=== PATIENT | female | born 1945 | race Caucasian/White ===

== ENCOUNTER 2023-05-04 11:19 | Emergency (ER) | payer MEDICARE ==
[2023-05-04 12:19] LABS: Absolute Lymphocytes (CBC) 1.2 K/uL (0.7-4.9); Hematocrit 40.8 % (36.0-45.0); Lymphocytes % 28.7 % (15.3-44.8); MCV 90.2 fL (80-100); MPV 8.7 fL (7.6-11.3); Platelets 163 thou/uL (152-406); Protime INR 1.07; RBC Red Blood Cell Count 4.52 M/uL (3.86-4.86)
[2023-05-04 12:35] LABS: Magnesium 1.9 mg/dL (1.6-2.4); Potassium 3.2 mEq/L (3.5-5.1); Troponin High Sensitivity 30.9 pg/mL (<58.9)
--- NOTE | 2023-05-04 12:44 | RAD REPORT ---
EXAM DESCRIPTION: RAD - Chest Pa And Lat (2 Views) - 05/04/2023 12:31 pm CLINICAL HISTORY: Cough;SOB Chest pain. COMPARISON: Chest Pa And Lat (2 Views) dated 01/28/2021; Chest Single View dated 11/16/2017; CHEST PA AND LAT 2 VIEW dated 01/03/2015; CHEST PA AND LAT 2 VIEW dated 08/18/2013 TECHNIQUE: PA and lateral views of the chest were obtained. FINDINGS: The lungs are hyperexpanded compatible with COPD. Slight haziness in the right lung base l aterally may represent early infiltrate. The heart is upper limit of normal in size. Sternotomy wires . IMPRESSION: COPD is noted. Hazy basilar opacity particularly on the right could indicate early pneum onia. The USPSTF recommends annual screening for lung cancer with low-dose CT (LDCT) in adults aged 50 to 8 0 years who have a 20 pack-year smoking history and currently smoke or have quit within the past 15 y ears.
--- NOTE | 2023-05-04 15:29 | RAD REPORT ---
EXAM DESCRIPTION: CT - Chest For Pe Angio - 05/04/2023 3:04 pm CLINICAL HISTORY: Chest pain. SOB COMPARISON: <Comparisons> TECHNIQUE: CT angiogram of the pulmonary arteries was performed with MIP. All CT scans are performed using dose optimization technique as appropriate and may include automated exposure control or mA/KV adjustment according to patient size. FINDINGS: No evidence of pulmonary thromboembolism. No acute aortic finding demonstrated. Aortic atherosclerosis. Mild COPD. 19 x 16 mm noncalcified nodule in the left lung base. 12 x 8 mm noncalcified nodule in the right middle lobe. No significant pericardial or pleural fluid. Small hiatal hernia. Sternotomy wires. IMPRESSION: No evidence of pulmonary thromboembolism. Noncalcified bilateral pulmonary nodules as detailed. These could be neoplastic or metastatic. Recomm end follow-up PET-CT to evaluate for metabolic activity.
[2023-05-04] MEDS ORDERED: POTASSIUM 25 MEQ EFFERV TAB ONE (16:41)
--- NOTE | 2023-05-04 16:46 | ER ---
Nurse's Notes [facility] Name: Melly Monte Age: 77 yrs Sex: Female : 1945 Arrival Date: 05/04/2023 Time: 11:19 Bed 12 Private MD: Diagnosis: Pneumonia due to SARS-associated coronavirus Presentation: 05/04 11:25 Chief complaint: Patient states: "The last 3 days, I couldn't get out of bed and just mb9 feel awful. I ordered a COVID test and it came back positive today. I have N/V/D and feel SOB when walking.". Coronavirus screen: Vaccine status: Patient reports receiving the 2nd dose of the covid vaccine. Ebola Screen: No symptoms or risks identified at this time. Initial Sepsis Screen: Does the patient meet any 2 criteria? No. Patient's initial sepsis screen is negative. Does the patient have a suspected source of infection? No. Patient's initial sepsis screen is negative. Risk Assessment: Do you want to hurt yourself or someone else? Patient reports no desire to harm self or others. Onset of symptoms was May 04, 2023. 11:25 Method Of Arrival: Ambulatory mb9 11:25 Acuity: BRIANNA 3 mb9 Triage Assessment: 11:29 General: Appears in no apparent distress. Behavior is calm, cooperative. Pain: mb9 Complains of pain in entire body. Neuro: Level of Consciousness is awake, alert, obeys commands, Oriented to person, place, time, situation, Appropriate for age. Cardiovascular: Patient's skin is warm and dry. Respiratory: Reports shortness of breath cough that is Breath sounds are clear bilaterally. Respiratory: Onset: The symptoms/episode began/occurred gradually, the patient has mild shortness of breath. GI: Reports diarrhea, nausea, vomiting. Derm: Skin is pink, warm \\T\\ dry. Historical: - Allergies: 11:27 No Known Allergies; mb9 - Home Meds: 11:27 Metformin Oral [Active]; Metoprolol Tartrate Oral [Active]; mb9 - PMHx: 11:27 Chronic obstructive lung disease; Hypertensive disorder; Diabetes mellitus; mb9 - PSHx: 11:27 Appendectomy; Cholecystectomy; Triple bypass; mb9 - Immunization history:: Adult Immunizations up to date. - Social history:: Smoking status: Patient/guardian denies using tobacco. Screenin:34 [facility] ED Fall Risk Assessment (Adult) History of falling in the last 3 months, me1 including since admission No falls in past 3 months (0 pts) Confusion or Disorientation No (0 pts) Intoxicated or Sedated No (0 pts) Impaired Gait No (0 pts) Mobility Assist Device Used No (0 pt) Altered Elimination No (0 pt) Score/Fall Risk Level 0 - 2 = Low Risk. Abuse screen: Denies threats or abuse. Nutritional screening: No deficits noted. Tuberculosis screening: No symptoms or risk factors identified. Assessment: 16:34 General: Appears uncomfortable, well groomed, well developed, well nourished, Behavior me1 is calm, cooperative, appropriate for age. General: Reports chills for fever for feeling ill for fatigue for she hasn't felt like getting oob x 3 days. Reports n/v/d and sob with exertion. States she took an at home covid test that was positive. Pain: Denies pain. Neuro: Level of Consciousness is awake, alert, obeys commands, Oriented to person, place, time, situation, Appropriate for age. Cardiovascular: Capillary refill < 3 seconds Patient's skin is warm and dry. Respiratory: Reports shortness of breath cough that is pain with cough Airway is patent Respiratory effort is even, unlabored, Respiratory pattern is regular, symmetrical. GI: Reports diarrhea, nausea, vomiting, since thursday. Vital Signs: 11:25 BP 111 / 70; Pulse 85; Resp 18; Temp 97.2; Pulse Ox 94% on R/A; Weight 68.04 kg; Height mb9 5 ft. 5 in. ; Pain 0/10; 16:43 BP 124 / 64; Pulse 67; Resp 18; Pulse Ox 99% on R/A; me1 11:25 Body Mass Index 24.96 (68.04 kg, 165.1 cm) mb9 11:25 Pain Scale: Adult mb9 ED Course: 11:23 Patient arrived in ED. mg5 11:25 Donald Sheth PA is PHCP. cp 11:25 Umair Mcdonald MD is Attending Physician. cp 11:25 Arm band placed on. mb9 11:27 Triage completed. mb9 12:25 Basic Metabolic Panel Sent. bc6 12:25 Magnesium Sent. bc6 12:25 NT PRO-BNP Sent. 6 12:25 Troponin HS Sent. bc6 12:25 Inserted saline lock: 22 gauge in right antecubital area, using aseptic technique. 6 Blood collected. 12:31 XRAY Chest Pa And Lat (2 Views) In Process Unspecified. EDMS 15:06 CT Chest For PE Angio In Process Unspecified. EDMS 16:29 Bonnie Duff, RN is Primary Nurse. me1 16:34 Patient has correct armband on for positive identification. Bed in low position. Call me1 light in reach. Side rails up X 1. Provided Education on: POC. Verbalized understanding. . 16:34 No provider procedures requiring assistance completed. IV is patent, is intact, with me1 fluids infusing freely, with good blood return. 17:01 IV discontinued, intact, bleeding controlled, No redness/swelling at site. Pressure mb9 dressing applied. Administered Medications: 16:33 Drug: Potassium PO Effervescent Tablet 50 mEq Route: PO; me1 Medication: 16:34 VIS not applicable for this client. me1 Outcome: 16:46 Discharge ordered by . kaye 17:01 Discharged to home ambulatory. mb9 17:01 Condition: stable 17:01 Discharge instructions given to patient, Instructed on discharge instructions, follow up and referral plans. Demonstrated understanding of instructions, follow-up care, medications, Prescriptions given X 4. 17:01 Patient left the ED. mb9 Signatures: Dispatcher [employer] EDNE Donald Sheth PA PA cp Breneman, Mary Beth RN RN mb9 Tory Hutchinson 6 Bonnie Duff, MOIRA RN me1 Shivani Hay mg5
--- NOTE | 2023-05-04 16:46 | EDPHYS ---
Physician Documentation [facility] Name: Melly Monte Age: 77 yrs Sex: Female : 1945 Arrival Date: 05/04/2023 Time: 11:19 Bed 12 Private MD: ED Physician Umair Mcdonald HPI: 05/04 11:45 This 77 yrs old Female presents to ER via Ambulatory with complaints of Positive covid, cp Shortness Of Breath. 11:45 The patient has shortness of breath with light activity. cp 11:45 Patient is a 77-year-old female who presents to the emergency department with cp complaints of shortness of breath, cough. Patient reports she has been feeling ill for the last 3 days and tested herself for COVID which returned positive today. Patient has not measured any fevers. Patient complains of some nausea, vomiting and diarrhea. Historical: - Allergies: 11:27 No Known Allergies; mb9 - Home Meds: 11:27 Metformin Oral [Active]; Metoprolol Tartrate Oral [Active]; mb9 - PMHx: 11:27 Chronic obstructive lung disease; Hypertensive disorder; Diabetes mellitus; mb9 - PSHx: 11:27 Appendectomy; Cholecystectomy; Triple bypass; mb9 - Immunization history:: Adult Immunizations up to date. - Social history:: Smoking status: Patient/guardian denies using tobacco. ROS: 11:50 Constitutional: Positive for body aches, Negative for fever, poor PO intake. cp 11:50 Eyes: Negative for injury, pain, redness, and discharge. cp 11:50 ENT: Negative for drainage from ear(s), ear pain, difficulty swallowing, difficulty handling secretions. 11:50 Cardiovascular: Negative for chest pain, edema, palpitations. 11:50 Respiratory: Positive for cough, shortness of breath, on exertion. 11:50 Abdomen/GI: Positive for nausea and vomiting, diarrhea, Negative for constipation, black/tarry stool, rectal bleeding. 11:50 Neuro: Positive for weakness, Negative for altered mental status, dizziness, headache, loss of consciousness, syncope. 11:50 All other systems are negative. Exam: 11:55 Constitutional: The patient appears in no acute distress, alert, awake, cp non-diaphoretic, non-toxic, well developed, well nourished. 11:55 Head/Face: Normocephalic, atraumatic. cp 11:55 Eyes: Periorbital structures: appear normal, Conjunctiva: normal, no exudate, no injection, Sclera: no appreciated abnormality, Lids and lashes: appear normal, bilaterally. 11:55 ENT: External ear(s): are unremarkable, Ear canal(s): are normal, clear, TM's: dullness, bilaterally, Nose: is normal, Mouth: Lips: moist, Oral mucosa: pink and intact, moist, Posterior pharynx: is normal, airway is patent, no erythema, no exudate. 11:55 Neck: ROM/movement: is normal, is supple, without pain, no range of motions limitations, no meningismus. 11:55 Chest/axilla: Inspection: normal. 11:55 Cardiovascular: Rate: normal, Rhythm: regular, Edema: is not appreciated, JVD: is not appreciated. 11:55 Respiratory: the patient does not display signs of respiratory distress, Respirations: labored breathing, is not present, shallow respirations, that is mild, Breath sounds: are clear throughout, no decreased breath sounds, no stridor, no wheezing. 11:55 Abdomen/GI: Inspection: abdomen appears normal, Palpation: abdomen is soft and non-tender, in all quadrants. 11:55 Back: ROM is normal. 11:55 Neuro: Orientation: to person, place \T\ time. Mentation: is normal, Motor: moves all fours, strength is normal, Sensation: is normal, Gait: is steady, at a normal pace, without difficulty. 12:28 ECG was reviewed by the Attending Physician. Vital Signs: 11:25 BP 111 / 70; Pulse 85; Resp 18; Temp 97.2; Pulse Ox 94% on R/A; Weight 68.04 kg; Height mb9 5 ft. 5 in. ; Pain 0/10; 16:43 BP 124 / 64; Pulse 67; Resp 18; Pulse Ox 99% on R/A; me1 11:25 Body Mass Index 24.96 (68.04 kg, 165.1 cm) mb9 11:25 Pain Scale: Adult mb9 MDM: 11:31 Patient medically screened. ci 16:45 Data reviewed: vital signs, nurses notes, lab test result(s), EKG, radiologic studies, cp CT scan, plain films. 16:45 Differential diagnosis: Bronchitis Myocardial Infarction pneumonia, Pneumothorax cp pulmonary edema, Pulmonary Embolism Sepsis Unstable Angina. Counseling: I had a detailed discussion with the patient and/or guardian regarding the historical points, exam findings, and any diagnostic results supporting the discharge/admit diagnosis, lab results, radiology results, the need for outpatient follow up, a family practitioner, to return to the emergency department if symptoms worsen or persist or if there are any questions or concerns that arise at home. 05/04 11:35 Order name: Basic Metabolic Panel; Complete Time: 13:58 cp 05/04 13:58 Interpretation: Normal except: NA 134; K 3.2; GLUC 111; CRE 1.06; GFR 54. cp 05/04 11:35 Order name: CBC with Diff; Complete Time: 13:58 cp 05/04 13:58 Interpretation: Normal except: WBC 4.10; MN% 17.4. cp 05/04 11:35 Order name: Magnesium; Complete Time: 13:58 cp 05/04 11:35 Order name: NT PRO-BNP; Complete Time: 13:58 cp 05/04 11:35 Order name: PT-INR; Complete Time: 13:58 cp 05/04 11:35 Order name: Troponin HS; Complete Time: 13:58 cp 05/04 11:35 Order name: XRAY Chest Pa And Lat (2 Views); Complete Time: 13:58 cp 05/04 14:01 Order name: CT Chest For PE Angio; Complete Time: 15:49 cp 05/04 11:35 Order name: EKG; Complete Time: 11:36 cp 05/04 11:35 Order name: Cardiac monitoring; Complete Time: 17:01 cp 05/04 11:35 Order name: EKG - Nurse/Tech; Complete Time: 12:25 cp 05/04 11:35 Order name: IV Saline Lock; Complete Time: 12:25 cp 05/04 11:35 Order name: Labs collected and sent; Complete Time: 12:25 cp 05/04 11:35 Order name: O2 Per Protocol; Complete Time: 17:01 cp 05/04 11:35 Order name: O2 Sat Monitoring; Complete Time: 17:01 cp EC:28 Rate is 74 beats/min. Rhythm is regular. [place] interval is normal. QRS interval is normal. cp QT interval is normal. T waves are Inverted in lead aVR. Interpreted by me. Reviewed by me. Administered Medications: 16:33 Drug: Potassium PO Effervescent Tablet 50 mEq Route: PO; me1 Disposition Summary: 05/04/23 16:46 Discharge Ordered Location: Home cp Problem: new cp Symptoms: have improved cp Condition: Stable cp Diagnosis - Pneumonia due to SARS-associated coronavirus cp Followup: cp - With: Private Physician - When: 2 - 3 days - Reason: Recheck today's complaints Discharge Instructions: - Discharge Summary Sheet cp - Aspirin and Your Heart cp - COVID-19 cp - 10 Things You Can Do to Manage Your COVID-19 Symptoms at Home - [facility] (03/22/2021) cp Forms: - Medication Reconciliation Form cp - Thank You Letter cp - Antibiotic Education cp - Prescription Opioid Use cp - Patient Portal Instructions cp - Leadership Thank You Letter cp Prescriptions: - Paxlovid 150-100 mg Oral Tablet, Dose Pack - take 1 dose pack by ORAL route per package directions for 5 days; 30 tablet; cp Refills: 0, Product Selection Permitted - albuterol sulfate 90 mcg/actuation Inhalation HFA Aerosol Inhaler - inhale 1 puff by INHALATION route every 4-6 hours administer via ventilator; 1 cp unit; Refills: 0, Product Selection Permitted - Zofran 4 mg Oral Tablet - take 1 tablet by ORAL route every 12 hours As needed; 20 tablet; Refills: 0, cp Product Selection Permitted - Zithromax Z-Javier 250 mg Oral Tablet - take 1 tablet by ORAL route as directed for 5 days Day 1 - take two (2) tablets cp one time. Day 2, 3, 4 , 5 take one (1) tablet once daily.; 6 tablet; Refills: 0, Product Selection Permitted Signatures: Dispatcher [employer] EDMS Donald Sheth PA PA cp Kathryn Nava RN RN mb9 Bonnie Duff RN RN me1 Jenna Reyez Corrections: (The following items were deleted from the chart) 05/05 16:53 05/04 11:50 Abdomen/GI: Positive for nausea and vomiting, Negative for diarrhea, cp constipation, cp
[2023-05-04 17:33] VITALS: TEMP 97.2
[2023-05-04 17:34] VITALS: BP 124/64; O2SAT 99
--- NOTE | 2023-05-05 16:31 | EKG ---
Test Date: 2023-05-04 Test Time: 12:22:39 Take Up Operator: YENNY MEASUREMENT RESULTS: Intervals: Rate: 74 MI: 138 QRSD: 74 QT: 412 QTc: 457 [place]: P: 66 MI: 138 QRS: 52 T: 73 INTERPRETIVE STATEMENTS: Normal sinus rhythm Nonspecific ST and T wave abnormality Abnormal ECG Compared to ECG 01/21/2012 12:26:40 ST (T wave) deviation now present T-wave abnormality no longer present Electronically Signed On 05-05-23 16:27:37 CDT by Benjamín Leon
== END 2023-05-04 17:01 | disposition home or self-care (01) ==
LOC: ER 11:19
DX: U07.1 COVID-19 (principal); J12.82 Pneumonia due to coronavirus disease 2019; J44.9 Chronic obstructive pulmonary disease, unspecified; I10 Essential (primary) hypertension; Z95.1 Presence of aortocoronary bypass graft
CPT/HCPCS: 93005; 85025; 80048; 36415; 83735; 85610; 84484; 83880; 71275; 71046; 99284; Q9967